=== PATIENT | female | born 1960 | race Caucasian/White ===

== ENCOUNTER 2021-06-24 12:19 | Outpatient (CLI) | payer OTHER, SELFPAY ==
--- NOTE | 2021-06-24 12:30 | XR_ITS ---
WS: [id number] Exam: XR chest 2V* [id number] Date/Time of Exam: 06/24/2021 12:35 PM Reason For Exam: ASMATIC BRONCHITIS Comparison 04/22/2017. The lungs are hyperinflated and clear. Normal cardiomediastinal structures. Bony elements are intact. No pleural effusions. XR/XR chest 2V* [id number] IMPRESSION: 1. Pulmonary hyperinflation which might indicate COPD. 2. No acute cardiopulmonary finding.
== END 2021-06-24 12:20 | disposition home or self-care (01) ==
LOC: RAD 12:25
PROVIDERS: PCP Nurse Practitioner Family; Visit Provider Nurse Practitioner Family
DX: J45.998 Other asthma (principal)
CPT/HCPCS: 71046

== ENCOUNTER → 2023-12-07 15:41 | Outpatient (BNVA) | payer OTHER, SELFPAY | PROVIDERS: PCP Nurse Practitioner Family; Visit Provider Nurse Practitioner Family | DX: J06.9 Acute upper respiratory infection, unspecified (principal); R53.83 Other fatigue; J44.9 Chronic obstructive pulmonary disease, unspecified; R00.2 Palpitations; G43.909 Migraine, unspecified, not intractable, without status migrainosus; F17.200 Nicotine dependence, unspecified, uncomplicated; Z12.2 Encounter for screening for malignant neoplasm of respiratory organs; E55.9 Vitamin D deficiency, unspecified | CPT/HCPCS: 80053; 82306; 82607; 82746; 84443; 85025; 93005 ==

== ENCOUNTER 2023-12-17 12:38 | Emergency (ER) | payer OTHER, SELFPAY ==
[2023-12-17 13:01] VITALS: BP 115/72; PULSE 89; RESP 18; TEMP 36.3; O2SAT 94
--- NOTE | 2023-12-17 14:07 | ED_ITS ---
HPI - Headache 2 General: Chief Complaint: Headache Stated Complaint: headache, dizzy Time Seen by Provider: 12/17/23 13:43 Source: patient Mode of arrival: ambulatory History of Present Illness: 60-year-old female presents emergency ro om with headache. About a week and a half ago she had intermittent headache it seemed to resolve and for 4 to 5 days she had no headache at all. 5 days ago her symptoms recurred and have worsened. She had no head trauma. She is not on any anticoagulants. She is not had any fever sweats or chills. She has had headaches in the past but not this intense. Mild photophobia no diplopia. MD elicited complaint: headache Associated symptoms: Deny chest pain, confusion, cough, diaphoresis, eye pain, eye redness, fever(s), lightheadedness, loss of vision, malaise, nausea, neck stiffness, numbness, paresthesias, photophobia, pre-syncope, rash, seizures, short of breath, sound sensitivity, syncope, vomiting or weakness Review of Systems 2 Const: Denies: fever(s), chills, malaise or diaphoresis Card: Denies: chest pain, lightheadedness, syncope or pre-syncope Resp: Denies: dyspnea GI: Denies: abdominal pain, nausea or vomiting : Denies: dysuria, urinary frequency or urinary urgency Musc: Denies: neck pain or back pain Skin/Breast: Denies: rash Neuro: Denies: confusion Physical Exam 2 Const: GENERAL APPEARANCE: cooperative and comfortable O RIENTATION/CONSCIOUSNESS: Yes awake, Yes oriented to person, Yes oriented to place and Yes oriented to time HENMT: COMMON NORMALS: normocephalic, atraumatic and hearing grossly normal bilaterally HEAD & SCALP: normocephalic and atraumatic Eye: DIRECT OPHTHALMOSCOPY: No photophobia Resp: COMMON NORMALS: normal respiratory effort, No retractions, No use of accessory muscles and clear to auscultation bilaterally AUSCULTATION: clear to auscultation bilaterally Cardio: COMMON NORMALS: regular rate, regular rhythm and No murmurs present (Cardio) RATE: regular rate RHYTHM: regular rhythm GI: COMMON NORMALS: Soft to palpation and No hepatosplenomegaly present A USCULTATION: Yes normoactive bowel sounds PALPATION: Yes Soft to palpation, No Tenderness to palpation present (GI), No Guarding due to palpation present (GI) and Yes No hepatosplenomegaly present Extremity: COMMON NORMALS: normal to inspection, capillary refill normal, no clubbing, cyanosis or edema, no calf tenderness and no pedal edema Neuro: SENSORIUM/ORIENTATION: Yes oriented to person, Yes oriented to place and Yes oriented to time OTHER: Neurologically intact no focal neurologic deficits noted Skin: COMMON NORMALS: no rashes or lesions noted GENERAL SKIN EXAM: no rashes or lesions noted Course 2 Vital Signs: Vital signs: Vital Signs Temperature 97.4 F L 12/17/23 13:01 Pulse Rate 1 L 12/17/23 14:40 Respiratory Rate 18 12/17/23 14:40 Blood Pressure 134/86 12/17/23 14:40 Pulse Oximetry 92 12/17/23 14:40 Oxygen Delivery Me thod Room Air 12/17/23 14:40 MDM - Headache Medical Decision Making Patient reports right-sided headache. CT of head is negative. Patient is improved we will discharge her home she can use promethazine along with Tylenol or for recurrent headaches. If she has persistent headaches encouraged her to follow-up with primary care doctor for consideration of headache suppression and/or referral to neurology Medical Records I reviewed the patient's medical records. Lab Data I reviewed the patient's lab results. 12/17/23 14:38 12/17/23 14:[address] 12/17/23 14:25 IMPRESSION: 1. No evidence of intracranial hemorrhage or mass effect. 2. Vascular calcification. 3. No acute intracranial findings. Laboratory Results WBC 11.75 10^3/uL (3.29-11.43) H 12/17/23 14:38 RBC 5.92 10^6/uL (3.85-5.65) H 12/17/23 14:38 Hgb 17.30 g/dL (11.27-16.99) H 12/17/23 14:38 Hct 53.5 % (36-47) H 12/17/23 14:38 MCV 90.4 fl (85-98) 12/17/23 14:38 MCH 29.2 pg (27-33) 12/17/23 14:38 MCHC 32.3 g/dL (30-55) 12/17/23 14:38 RDW 14.1 % (12.1-15.1) 12/17/23 14:38 Plt Count 230 10^3/cmm (157-399) 12/17/23 14:38 MPV 8.9 fL (7.4-10.4) 12/17/23 14:38 Neut % (Auto) 36.6 % 12/17/23 14:38 Lymph % (Auto) 49.9 % 12/17/23 14:38 [place] % (Auto) 8.4 % 12/17/23 14:38 Eos % (Auto) 3.1 % 12/17/23 14:38 Baso % (Auto) 0.7 % 12/17/23 14:38 Neut # (Auto) 4.31 10^3/uL (1.8-7.7) 12/17/23 14:38 Lymph # (Auto) 5.9 10^3/uL (0.8-4.8) H 12/17/23 14:38 [place] # (Auto) 1.0 10^3/uL (0.2-0.9) H 12/17/23 14:38 Eos # (Auto) 0.4 10^3/uL (0.0-0.8) 12/17/23 14:38 Baso # (Auto) 0.1 10^3/uL (0.0-0.1) 12/17/23 14:38 Nucleated RBC % (auto) 0 % 12/17/23 14:38 Nucleated RBCs # 0.0 /100WBC 12/17/23 14:38 Sodium 134 mmol/L (136-145) L 12/17/23 14:38 Potassium 4.5 mmol/L (3.5-5.1) 12/17/23 14:38 Chloride 98 mmol/L (98-107) 12/17/23 14:38 Carbon Dioxide 25 mmol/L (22-29) 12/17/23 14:38 Anion Gap 15.5 (5-19) 12/17/23 14:38 BUN 17 mg/dL (8-23) 12/17/23 14:38 Creatinine 0.6 mg/dL (0.5-0.9) 12/17/23 14:38 GFR Calculation 101.0 mL/min (90-130) 12/17/23 14:38 Glucose 103 mg/dL (65-115) 12/17/23 14:38 Calculated Osmolality 280 mOsm/kg (285-295) L 12/17/23 14:38 Calcium 9.3 mg/dL (8.5-10.5) 12/17/23 14:38 Total Bilirubin 0.4 mg/dL (0.15-1.2) 12/17/23 14:38 AST 20 U/L (0-32) 12/17/23 14:38 ALT 21 U/L (0-33) 12/17/23 14:38 Alkaline Phosphatase 110 U/L (35-105) H 12/17/23 14:38 Total Protein 7.3 g/dL (6.6-8.7) 12/17/23 14:38 Albumin 3.9 g/dL (3.5-5.2) 12/17/23 14:38 Globulin 3.4 g/dL (1.3-4.6) 12/17/23 14:38 Urine Color Yellow (Yellow) 12/17/23 15:40 Urine Appearance Clear (CLEAR) 12/17/23 15:40 Urine pH 6 (5-7) 12/17/23 15:40 Ur Specific Waterproof 1.010 (1.005-1.030) 12/17/23 15:40 Urine Protein Neg (Negative) 12/17/23 15:40 Urine Glucose (UA) Norm (Normal) 12/17/23 15:40 Urine Ketones Negative (Negative) 12/17/23 15:40 Urine Blood Neg (Negative) 12/17/23 15:40 Urine Nitrate Negative (Negative) 12/17/23 15:40 Urine Bilirubin Neg (Negative) 12/17/23 15:40 Urine Urobilinogen Neg mg/dL (Negative) 12/17/23 15:40 Ur Leukocyte Esterase Negative (Negative) 12/17/23 15:40 All radiology interpretation(s) finalized by discharge Discharge Plan Discharge Patient Disposition: Home Clinical Impression: Headache Condition: Stable Prescriptions: New promethazine 25 mg tablet 25 mg PO Q6H PRN (Reason: headache) Qty: 20 0RF No Action citalopram 20 mg tablet 20 mg PO DAILY alprazolam 1 mg tablet 1 mg PO BID lisinopril 10 mg tablet 10 mg PO BID propranolol 10 mg tablet 5 mg PO BID Trelegy Ellipta 200-62.5-25 mcg blister with device 1 inh inhalation DAILY Qty: 60 5RF doxycycline hyclate 100 mg tablet 100 mg PO BID 7 Days Qty: 14 0RF ergocalciferol (vitamin D2) 1,250 mcg (50,000 unit) capsule 1,250 mcg PO .weekly 84 Days Qty: 12 3RF Discharge Orders: Discharge ED (Routine); Ordered 12/17/23 Ordered By: Juarez Miranda Referrals: Addie Goldstein APN [Primary Care Provider] - Discharge Diet: Usual diet Discharge Activity: Increase activity as tolerated Patient Instructions: Opioid Safety, Pain Management Activity Restrictions/Additional Instructions: Thank you for choosing [facility] for your healthcare needs today. Please realize this is an emergency room and that we are providing you with a medical screening exam and this may not be complete and all inclusive of all the testing and or work up that you may need to determine your ailment or severity of your illness. It is very important that you follow up as instructed or that you return to the Emergency Department should you have concerns or if your condition changes or worsens in any way. You were seen today for a headache. Your headache responded well with medications given in the emergency room. CT of your head was negative. You are given promethazine to use as needed if you have recurrent headaches. You can take this along with Tylenol if needed. If the headaches persist and recurring recommend you follow-up with your primary care doctor for further evaluation or possible referral to neurology as felt appropriate. Coding Level of Care Code ED Senior Net Developer for Tayo Blackwell
--- NOTE | 2023-12-17 14:25 | CT_ITS ---
WS: [id number] CT HEAD TECHNIQUE: Noncontrast CT of the head obtained from the skullbase to the vertex. CLINICAL INFORMATION: headache COMPARISON: 2013 DLP: 1073.[address] scans at [facility] use at least one of these dose optimization techniques: automated e xposure control; mA and/or kV adjustment per patient size (includes targeted exams where dose is matc hed to clinical indication); or iterative reconstruction. FINDINGS: No evidence of intracranial hemorrhage or mass effect. Ventricular system and basal cisterns are [place] nt. Mild small vessel changes with mild parenchymal volume loss. No extra-axial fluid collections. No evidence of mass or mass effect. Normal montes-white differentiation. Paranasal sinuses and mastoid air cells are well aerated. .Normal visualized soft tissues. CT/CT head wo con* [id number] IMPRESSION: 1. No evidence of intracranial hemorrhage or mass effect. 2. Vascular calcification. 3. No acute intracranial findings.
[2023-12-17] MEDS: sodium chloride 0.9% 1,000 ML 999 ML IV (14:39)
[2023-12-17] MEDS: ketorolac 30 mg/mL INJ IVP (14:39)
[2023-12-17] MEDS: metoclopramide 5 mg/mL SDV 2 mL 10 MG IVP (14:39)
[2023-12-17 14:40] VITALS: BP 134/86; PULSE 1; RESP 18; O2SAT 92
[2023-12-17 14:54] LABS: Basophils # 0.1 10^3/uL (0.0-0.1); Basophils % 0.7 %; Eosinophils # 0.4 10^3/uL (0.0-0.8); Eosinophils % 3.1 %; Hematocrit 53.5 % (36-47); Lymphocytes # 5.9 10^3/uL (0.8-4.8); Lymphocytes % 49.9 %; Mean Corpuscular HGB Conc 32.3 g/dL (30-55); Mean Corpuscular Hemoglobin 29.2 pg (27-33); Mean Corpuscular Volume 90.4 fl (85-98); Mean Platelet Volume 8.9 fL (7.4-10.4); Monocytes % 8.4 %; Neutrophils # 4.31 10^3/uL (1.8-7.7); Neutrophils % 36.6 %; Nucleated Red Blood Cells % 0 %; Platelet Count 230 10^3/cmm (157-399); Red Blood Count 5.92 10^6/uL (3.85-5.65); Red Cell Distribution Width 14.1 % (12.1-15.1); White Blood Count 11.75 10^3/uL (3.29-11.43)
[2023-12-17 15:18] LABS: Alanine Aminotransferase 21 U/L (0-33); Albumin Level 3.9 g/dL (3.5-5.2); Alkaline Phosphatase 110 U/L (35-105); Anion Gap 15.5 (5-19); Aspartate Amino Transferase 20 U/L (0-32); Blood Urea Nitrogen 17 mg/dL (8-23); Calcium 9.3 mg/dL (8.5-10.5); Carbon Dioxide 25 mmol/L (22-29); Chloride 98 mmol/L (98-107); Creatinine Clr Calc Pharmacy 103.3849; Globulin 3.4 g/dL (1.3-4.6); Glucose 103 mg/dL (65-115); Osmolality Calculated 280 mOsm/kg (285-295); Potassium 4.5 mmol/L (3.5-5.1); Sodium 134 mmol/L (136-145); Total Bilirubin 0.4 mg/dL (0.15-1.2); Total Protein 7.3 g/dL (6.6-8.7)
[2023-12-17 15:54] LABS: Add Urine Microscopic? NO; Charge for UA Resulting for Rev
[2023-12-17 16:00] LABS: Bilirubin Urine Neg (Negative); Blood Urine Neg (Negative); Glucose Urine UA Norm (Normal); Ketones Urine Negative (Negative); Nitrate Urine Negative (Negative); Protein Urine Neg (Negative); Urine Appearance Clear (CLEAR); Urine Color Yellow (Yellow); pH Urine 6 (5-7)
[2023-12-17 16:01] LABS: Leukocyte Esterase Urine Negative (Negative); Urobilinogen Urine Neg (Negative)
[2023-12-17] MEDS: valproic acid inj 500 MG in sodium chloride 0.9% 50 ML 55 MG IV (16:42)
== END 2023-12-17 17:47 | disposition home or self-care (01) ==
PROVIDERS: Emergency Provider Family Medicine; PCP Nurse Practitioner Family
DX: R51.9 Headache, unspecified (principal)
CPT/HCPCS: 70450; 80053; 81003; 85025; 96374; 96375; 99285; J1885; J2765; J3490; J7030

== ENCOUNTER → 2023-12-21 10:32 | Outpatient (BNVA) | payer OTHER, SELFPAY | PROVIDERS: PCP Nurse Practitioner Family; Visit Provider Nurse Practitioner Family | DX: J06.9 Acute upper respiratory infection, unspecified (principal); G43.919 Migraine, unspecified, intractable, without status migrainosus | CPT/HCPCS: 80053; 85025; 85651 ==